=== PATIENT | male | born 1945 | race Caucasian/White ===

== ENCOUNTER 2019-04-29 07:06 | Observation (INO) | payer MEDICARE, OTHER ==
[~2019-04-29] VITALS: Ht 195.6 cm; Wt 108.9 kg
[2019-04-29] VITALS (13 sets, daily range): BP systolic 126–181; BP diastolic 71–85
--- NOTE | ~2019-04-29 | H ---
[address] [address] HISTORY AND PHYSICAL Name: BENJAMIN CORNEJO Room: [address] Chrissie Booker#: [id number] Admission: 04/29/19 Attend Phys: Link Glover MD, F Discharge: 04/30/19 Date of : 43 Report #: [id number] THIS REPORT FOR: //name// Please refer to the History and Physical performed in the physician's office. By: 0636Medical Records Staff EDUARDO /EDWARD
[2019-04-29 08:14] LABS: HEMATOCRIT 46.5 % (42.0-52.0); HEMOGLOBIN 15.8 gm/dL (14.0-18.0); MCH 31.9 pg (26.0-34.0); MCV 93.9 fL (80.0-100.0); MPV 10.1 fl. (7.2-11.1); RBC 4.95 mil/uL (4.50-6.00); RDW-CV 13.9 % (10.5-14.5); WBC 7.1 thou/uL (4.0-11.0)
[2019-04-29 08:21] LABS: PROTIME 10.2 Seconds (9.20-11.50)
[2019-04-29] MEDS ORDERED: ASPIRIN81 M2 PO (08:22)
[2019-04-29] MEDS ORDERED: TUMS PO ×2 (08:23→08:24)
[2019-04-29] MEDS ORDERED: CALCIUM 600 +1 EAC1 PO (08:24)
[2019-04-29] MEDS ORDERED: COQ-10100 MG PO (08:24)
[2019-04-29] MEDS ORDERED: CARDIZEM CD240 MG PO (08:25)
[2019-04-29 08:27] LABS: ANION GAP 8 mmol/L (7-16); BUN 22 mg/dL (7-18); CHLORIDE 104 mmol/L (98-107); CO2 27 mmol/L (21-32); GLUCOSE 96 mg/dL (70-99); POTASSIUM 3.9 mmol/L (3.5-5.1); SODIUM 139 mmol/L (136-145)
[2019-04-29] MEDS ORDERED: LISINOPRIL10 MG PO (08:29)
[2019-04-29] MEDS ORDERED: MOBIC15 MG PO (08:30)
[2019-04-29] MEDS ORDERED: FISH OIL 1,001000 M2 PO (08:30)
[2019-04-29] MEDS ORDERED: MAGOX 400400 MG PO (08:30)
[2019-04-29] MEDS ORDERED: OSTEO BI-FLEX1 EAC1 PO (08:31)
[2019-04-29] MEDS ORDERED: PRILOSEC OTC20 MG PO (08:31)
[2019-04-29 08:32] LABS: ALBUMIN 3.9 g/dL (3.4-5.0); ALKALINE PHOSPHATASE 83 U/L (46-116); SGOT 24 U/L (15-37); SGPT 40 U/L (30-65); TOTAL BILIRUBIN 0.6 mg/dL (<0.1-1.0); TOTAL PROTEIN 7.3 g/dL (6.4-8.2)
[2019-04-29 08:35] LABS: SERUM ASSESSMENT Clear
[2019-04-29 08:54] LABS: CHOLESTEROL 140 mg/dL (<200); HDL CHOLESTEROL 57 mg/dL (>40); LDL CHOLESTEROL 60 mg/dL (<100); TC:HDL 2.5 Ratio (Not establshd); TRIGLYCERIDE 118 mg/dL (<150); VLDL 24 mg/dL (<40)
--- NOTE | 2019-04-29 16:53 | EKG ---
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
--- NOTE | 2019-04-29 17:08 | EKG ---
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
--- NOTE | 2019-04-29 18:23 | CARD ---
[address] [address] CARDIAC CATH REPORT Name: BENJAMIN CORNEJO Room: [address] IN .[place].#: [id number] Admission: 04/29/19 Attend Phys: Link Glover MD, F Discharge: Date of : 43 Report #: [id number] THIS REPORT FOR: //name// APPROVED REPORT Study performed: 04/29/2019 08:15:13 Patient Details Patient Status: Out-Patient Room #: The patient is a 74 year-old male Event Personnel Link Glover Lockstitch Waistline Joiner, Qi Ingram RN RN, Dionte Vanessa (R) Monitor, Zaid Jim MEDICAL CONSULTANT Scrub Procedures Performed NICK Place w/wo Plasty RCA Indication Positive stress test, Chest pain Risk Factors Hypercholesterolemia, Hypertension Previous Procedures/Diagnoses Previous [place] Admission/Lab Medications/Medications given during procedure Glycoprotein IllbIlla Inhibitors, Heparin Unfract. Procedure Narrative The patient was brought electively to the Cardiac Catheterization Laboratory and was prepped and draped in a sterile manner. The left wrist was infiltrated with 1% Lidocaine subcutaneous anesthesia. A Slender Glidesheath sheath was inserted into the left radial artery. Coronary angiography was performed using coronary diagnostic catheters. The right coronary system was accessed and visualized with a Diagnostic JR4 catheter. The left coronary system was accessed and visualized with a Diagnostic JL4 catheter. The left ventricle was accessed and visualized with a Diagnostic Angled Pigtail catheter. Left ventricular/Aortic Valve gradient assessed via catheter pullback. Left ventriculogram was performed in CAPELLAN projection. Closure device was deployed with a 6 Fr Vasc-Band Lng 27cm. The patient tolerated the procedure well and [place] [address] CARDIAC CATH REPORT Name: BENJAMIN CORNEJO Room: [address]#: [id number] Admission: 04/29/19 Attend Phys: Link Glover MD, F Discharge: Date of : 43 Report #: [id number] associated with the procedure. There was no hematoma. Right radial artery had an abnormal Barbeau test. Intraoperative Conscious Sedation Sedation start time: 9:33 Case end Time: 10:30 Fentanyl 50 mcg Versed 3 mg Fluoro Time: 12.0 minutes Dose: DAP 829441 cGycm2 2044 mGy Contrast Type and Amount: Omnipaque 230 ml Coronary Angiography The patient's coronary anatomy is right dominant. Diagnostic Cath Left Main 0% stenosis LAD 80% before and 60% after the 3rd diagonal branch in the mid lad Circumflex 50% proximal stenosis Right Coronary 30% mid stenosis. 90% stenosis in distal rca after the pda branch but prior to the gladys branch Left Ventriculography The left ventricle is normal in size with normal contractility. The left ventricular ejection fraction is estimated to be 60-65%. Left ventricular wall motion abnormalities are not present. There is no mitral insufficiency. Hemodynamics The aortic pressure is 138/62 mmHg with a mean of 96 mmHg. The left ventricular pressure is 143/10 mmHg with a mean of mmHg. The left ventricular end diastolic pressure is 16 mmHg. There was no gradient across the aortic valve upon pullback. Pullback from the left ventricle to the aorta revealed no gradient across the aortic valve. PCI Technique Lesion Anticoagulation was achieved with Heparin. bolus of iv aggrastat given Percutaneous coronary intervention was performed on the distal right coronary artery. The lesion stenosis prior to intervention was 90% with SHANNON 3 flow. A 6F JR 4.0 Guide Catheter was used to engage the rca ostium. A IG: BMW 190cm Interventional Guidewire was used to cross the lesion. [place] [address] CARDIAC CATH REPORT Name: BENJAMIN CORNEJO Room: [address]#: [id number] Admission: 04/29/19 Attend Phys: Link Glover MD, F Discharge: Date of : 43 Report #: [id number] A Balloon catheter Trek RX 2.5 X 8 was inserted and inflated up to 16.00atm for 15seconds. Repeat angiography revealed the following post-dilatation results: 50% stenosis. STENT DEPLOYMENT A drug-eluting stent Melecio RX Stent 3.5X18mm was inserted and inflated up to 12.00atm for 19seconds. Repeat angiography revealed the following post-stent deployment results: 0% stenosis. Additional Inflation: 18.00atm for 18seconds. 70% stenosis noted of the ostium of the pda branch that now arose from within the stent. Final angiography reveals 0 % stenosis with SHANNON 3 flow. PCI Technique Lesion 2 Percutaneous Coronary Intervention was performed on the right posterior descending artery. Percutaneous coronary intervention was performed on the right posterior descending artery. The lesion stenosis prior to intervention was 70% with SHANNON 3 flow. A 6F JR 4.0 Guide Catheter was used to engage the rca ostium. A IG: BMW 190cm Interventional Guidewire was used to cross the lesion. Balloon Dilation A Balloon catheter Mini Trek RX 2.0 X 8 was inserted and inflated up to 16.00atm for 16seconds. Repeat angiography revealed the following post-dilatation results: 30% stenosis. Additional Inflation: 16.00atm for 15seconds. Additional Inflation: 18.00atm for 11seconds. Final angiography reveals 30 % stenosis with SHANNON 3 flow. Conclusion 1. 80% stenosis of the mid lad, and 90% stenosis of the distal rca 2. successful placement of a drug eluting stent in the distal rca 3. placement of stent resulted in plaque shift into the ostium of the pda branch 4. successful PTCA of the pda branch placed through a stent strut 5. LVEF 60-65% Recommendations 1. return at a later date for stenting [place] [address] CARDIAC CATH REPORT Name: BENJAMIN CORNEJO Room: [address] IN [facility]#: [id number] Admission: 04/29/19 Attend Phys: Link Glover MD, F Discharge: Date of : 43 Report #: [id number] Medications Administered Clopidogrel <ELECTRONICALLY SIGNED> By: Link Glover MD, FAC 04/29/19 182 182 [id number] Glover MD, FAC /INF
--- NOTE | 2019-04-29 18:36 | NUR ---
NEW ADMIN POST CATH STENT PLACED LEFT WRIST ACCESSESS 2CC REPORTED TO BE VASCBAND PLACED DUE TO HEMATOMA POST CATH. WAS REMOVED POST ADMISSION APPROX 1530 WITH NO HEMATOMA NOTED. GAUZE 4X4 APPLIED WITH TRANSPARENT DRESSING AND IS CDI. VS STABLE O2 SAT 98% RA. PT A&OX4, PATIENT STANDBY ASSIST FOR SAFETY. IV NOTED TO RIGHT AC WITH IV FLUIDS INFUSING ORDERED. PT DENIES ANY PAIN. CALL LIGHT WITHIN REACH. PT VOICES NEEDS ALL NEEDS MET AT THIS TIME. WCTM
[2019-04-30 00:36] VITALS: BP 129/66
[2019-04-30 04:00] VITALS: BP 121/66
[2019-04-30 05:16] LABS: HEMATOCRIT 43.5 % (42.0-52.0); HEMOGLOBIN 14.8 gm/dL (14.0-18.0); MCH 31.9 pg (26.0-34.0); MCHC 34.1 g/dL (28.0-37.0); MCV 93.3 fL (80.0-100.0); MPV 10.1 fl. (7.2-11.1); RBC 4.66 mil/uL (4.50-6.00); RDW-CV 14.1 % (10.5-14.5); WBC 7.5 thou/uL (4.0-11.0)
[2019-04-30 05:39] LABS: CALCIUM 8.6 mg/dL (8.5-10.1); CREATININE 0.9 mg/dL (0.6-1.3); POTASSIUM 3.9 mmol/L (3.5-5.1)
[2019-04-30 05:41] LABS: TROPONIN-I LEVEL 0.95 ng/mL (<0.06)
--- NOTE | 2019-04-30 06:04 | NUR ---
ASSUMED PT CARE AT 1930. NURSING ASSESSMENT COMPLETED AT START OF SHIFT. PT VOICED NO CONCERNS, HOURLY ROUNDING COMPLETED. EDUCATION CONSULTANT IN PLACE, TRACING SINUS RHYTH. DENIES CHEST PAIN THIS SHIFT. CALL LIGHT WITHIN REACH.
--- NOTE | 2019-04-30 08:15 | NUR ---
ASSUMED PT. CARE AND RECEIVED REPORT AT 0730. PT A/OX4, VSS, MONITOR ON TRACING SR. PT REPORTS SLIGHT TWINGES OF PAIN RATING 0.5/10, REPORTED TO DR. CAZARES BY PATIENT. FULL ASSESSMENT COMPLETED, REFER TO CHARTING. PT. ANTICIPATE DC TODAY, ACCEPTABLE OF PLAN OF CARE. CALL LIGHT IN REACH, WILL COTNINUE WITH PLAN OF CARE.
[2019-04-30 08:17] VITALS: BP 135/72
[2019-04-30 09:44] VITALS: BP 135/72
[2019-04-30] MEDS ORDERED: PLAVIX 75 MG TA75 M1 PO (11:03)
--- NOTE | 2019-04-30 11:38 | EKG ---
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 /EPI
--- NOTE | 2019-04-30 11:55 | NUR ---
DC ORDERS RECEIVED. IV AND MONITOR REMOVED. PT. AND SPOUSE GIVEN DC INSTRUCTIONS, SCRIPTS, AND CARENOTES. PT. LEFT VIA WHEELCHAIR TO RETURN HOME INPERSONAL VEHICLE, ALL BELONGINGS ACCOUNTED FOR.
--- NOTE | 2019-04-30 13:44 | D ---
[address] [address] DISCHARGE SUMMARY Name: BENJAMIN CORNEJO MARIAH Room: [address] Chrissie Booker#: [id number] Admission: 04/29/19 Attend Phys: Link Glover MD, F Discharge: 04/30/19 Date of : 43 Report #: [id number] THIS REPORT FOR: //name// CC: Link Lyons DATE OF SERVICE: 04/30/2019 DISCHARGE DIAGNOSES: 1. Crescendo angina. 2. Coronary artery disease. 3. Hypertension. 4. Hyperlipidemia. CONSULTANTS: None. PROCEDURES: Left heart catheterization with placement of a drug-eluting stent in the right coronary artery via the left radial artery. HISTORY OF PRESENT ILLNESS: The patient is a 74-year-old white male who was brought to the outpatient department for repeat cardiac catheterization. The patient apparently had a previous myocardial infarction in 2002. However, heart catheterization showed normal coronary arteries. He is felt to have possible coronary spasm. Recently, however, he noticed with exertion developed a pain in his chest. It is not related to food. He denied any palpitation or syncope. He denied any shortness of breath. I saw him in the Cardiology Clinic on 04/16 and recommended a stress echocardiogram that was performed on 04/23 in my office. At that time, he walked for 5 minutes and developed chest tightness. ECG showed a [address] segment depression. Ejection fraction was normal at rest 60%. With stress, ejection fraction appeared only to be 50% with inferior hypokinesis noted. This is felt to be abnormal stress echo. I recommended cardiac catheterization. PAST MEDICAL HISTORY: Significant for hernia repair, knee surgery, shoulder surgery, hypertension and hyperlipidemia. MEDICATIONS: Include aspirin, Lipitor, Cardizem-CD, lisinopril and omeprazole. ALLERGIES: HE HAD AN INTOLERANCE TO CODEINE. PHYSICAL EXAMINATION: VITAL SIGNS: Blood pressure was 130/80, pulse was 60. CHEST: Clear to auscultation. CARDIOVASCULAR: [place] [address] DISCHARGE SUMMARY Name: ASHWIN CORNEJOCONRAD LEMUS Room: [address]#: [id number] Admission: 04/29/19 Attend Phys: Link Glover MD, F Discharge: 04/30/19 Date of : 43 Report #: [id number] ABDOMEN: Soft. EXTREMITIES: Had no edema. SKIN: Warm and dry. RADIOLOGICAL DATA: His ECG showed a sinus bradycardia, no significant ST or T-wave changes. LABORATORY DATA: Sodium 143, creatinine 1.0 and glucose 98. Liver function studies were normal. His cholesterol was 140, triglycerides 118, HDL 57 and LDL was only 60. White blood cell count 7.1, hemoglobin 15.8. HOSPITAL COURSE: The patient was brought to the outpatient department. His right radial artery actually failed the Ed's test. Therefore, I performed the procedure from the left radial artery. He tolerated the procedure well. Results showed normal left ventricular function with an ejection fraction of 60%. He was found to have an 80% narrowing of the mid LAD, 50% narrowing of the proximal circumflex and a 90% stenosis of the distal right coronary artery. He was then given heparin and Aggrastat. I placed a single drug-eluting stent in the distal right coronary artery. There was some compromise of the takeoff of the posterior descending branch and I performed balloon angioplasty of the ostium of the PDA that arose from within the stent. He tolerated this well. He was loaded with Plavix. He had no further chest pain, shortness of breath or arrhythmias. Prior to discharge, the patient had no further complaints. He developed no hematoma in the left wrist. The patient had a followup EKG after the procedure that again showed sinus bradycardia, no significant ST or T-wave changes. Followup lab work after the procedure showed his creatinine was 0.9. He did bump his troponin to 0.95. His followup hemoglobin was 14.8. The patient was felt to have had a type 4 myocardial infarction with mild elevation of troponin. However, he had no EKG changes or significant chest pain. It was felt to be secondary to plaque shift into the posterior descending branch. The patient was therefore discharged on his home medications and he was started on Plavix 75 mg a day. He was discharged to return to care of Dr. Samantha Crespo, his primary care physician. I did recommend he not perform any stressful activity until he returns electively on Tuesday 05/22 when I plan to stent the LAD because of the high-grade stenosis. He was to contact my office if he has recurrent angina. At that time, I plan to perform if from the femoral artery since it may require bifurcation stenting and he failed the Ed's test from his right radial artery. At the time of discharge, the patient is ambulating and had no further complaints. His vital signs showed blood pressure 120/60, pulse 60 and he was afebrile. <ELECTRONICALLY SIGNED> By: Link Glover MD, [facility] 04/30/19 1344 0809 [id number] Glover MD, [facility] /nt
== END 2019-04-30 12:03 | disposition home or self-care (01) ==
LOC: M.CL 07:06 → M.TBA-CV 14:54 → M.2W 14:54
PROVIDERS: ADMIT Internal Medicine Cardiovascular Disease
PROC: 027034Z Dilation of Coronary Artery, One Artery with Drug-eluting Intraluminal Device, Percutaneous Approach (ICD-10-PCS; principal; 2019-04-29)
DX: I25.118 Atherosclerotic heart disease of native coronary artery with other forms of angina pectoris (principal); I10 Essential (primary) hypertension; E78.5 Hyperlipidemia, unspecified; E78.00 Pure hypercholesterolemia, unspecified

== ENCOUNTER 2019-05-22 07:22 | Observation (INO) | payer MEDICARE, OTHER ==
[2019-05-22] VITALS (13 sets, daily range): BP systolic 112–162; BP diastolic 62–82
[~2019-05-22] VITALS: Ht 193 cm; Wt 108.9 kg
[~2019-05-22 07:22] MED LIST: ASPIRIN81 M2 PO; CALCIUM 600 +1 EAC1 PO; CARDIZEM CD 18180 M3 PO; COQ-10100 MG PO; FISH OIL 1,001000 M2 PO; LISINOPRIL10 MG PO; MAGOX 400400 MG PO; MOBIC15 MG PO; OSTEO BI-FLEX1 EAC1 PO; PLAVIX 75 MG TA75 M1 PO; PRILOSEC OTC20 MG PO; TUMS PO
[2019-05-22 08:22] LABS: HEMATOCRIT 47.4 % (42.0-52.0); HEMOGLOBIN 16.5 gm/dL (14.0-18.0); MCH 32.5 pg (26.0-34.0); MCHC 34.8 g/dL (28.0-37.0); MCV 93.3 fL (80.0-100.0); MPV 10.1 fl. (7.2-11.1); RBC 5.09 mil/uL (4.50-6.00); WBC 8.5 thou/uL (4.0-11.0)
[2019-05-22 08:37] LABS: ALBUMIN 4.1 g/dL (3.4-5.0); CALCIUM 9.5 mg/dL (8.5-10.1); CREATININE 1.2 mg/dL (0.6-1.3); POTASSIUM 3.7 mmol/L (3.5-5.1); TOTAL BILIRUBIN 0.7 mg/dL (<0.1-1.0); TOTAL PROTEIN 7.7 g/dL (6.4-8.2)
[2019-05-22] MEDS ORDERED: LIPITOR40 MG PO (09:04)
[2019-05-22] MEDS ORDERED: OMEGA-31000 M1 PO (09:10)
[2019-05-22] MEDS ORDERED: PLAVIX 75 MG TA75 M1 PO (09:13)
[2019-05-22] MEDS ORDERED: TURMERIC500 M2 PO (09:13)
--- NOTE | 2019-05-22 15:00 | NUR ---
PT ARRIVED TO UNIT AT APPROX 1455 VIA CART WITH SPOUSE AND NURSING STAFF, RECVD REPORT FROM KAMARI EDWARDS. PT A&O X4, VSS, MANAGEMENT ASSOCIATE TRACING SINUS RHYTHM, CATH SITE TO RIGHT GROIN SOFT, DRESSING CLEAN, DRY, AND INTACT. PT ORIENTED TO CALL LIGHT AND ROOM.
--- NOTE | 2019-05-22 16:48 | EKG ---
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
--- NOTE | 2019-05-22 18:26 | CARD ---
[address] [address] CARDIAC CATH REPORT Name: BENJAMIN CORNEJO Room: [address] IN [facility]#: [id number] Admission: 05/22/19 Attend Phys: Link Glover MD, F Discharge: Date of : 43 Report #: [id number] THIS REPORT FOR: //name// APPROVED REPORT Study performed: 05/22/2019 08:40:28 Patient Details Patient Status: Out-Patient Room #: The patient is a 74 year-old male Event Personnel Link Glover Chemical Production Engineer, Qi Ingram RN Jewelry Technician, Diotne VanessaT (R) Monitor, Brandi Mariscal RTR Monitor, Julius Hatch ORTHOTIST PROSTHETIST Scrub, Eva Lilly RTR Scrub Procedures Performed NICK Place w/wo Plasty Single LAD and ptca of ostium of 3rd diagonal branch after plaque shift following stenting of the lad Indication Positive stress test, Chest pain Risk Factors Arterial Hypertension, Hypercholesterolemia Previous Procedures/Diagnoses Previous PCI, Previous [place] Admission/Lab Medications/Medications given during procedure Heparin Unfract. Procedure Narrative The patient was brought electively to the Cardiac Catheterization Laboratory and was prepped and draped in a sterile manner. The right femoral was infiltrated with 1% Lidocaine subcutaneous anesthesia. A 6fr Ultimum Sheath sheath was inserted into the right femoral artery. Coronary angiography was performed using coronary diagnostic catheters. The right coronary system was accessed and visualized with a Diagnostic JR 4 catheter. The left coronary system was accessed and visualized with a Guide 6F XB LAD 4.0 catheter. Left ventricular/Aortic Valve gradient assessed via catheter pullback. Closure device was deployed with a 6 Fr Angioseal STS 6Fr. The patient tolerated the procedure well [place] [address] CARDIAC CATH REPORT Name: BENJAMIN CORNEJO Room: [address] IN [facility]#: [id number] Admission: 05/22/19 Attend Phys: Link Glover MD, F Discharge: Date of : 43 Report #: [id number] associated with the procedure. There was no hematoma. Intraoperative Conscious Sedation Sedation start time: 9:05 Case end Time: 10:00 Fentanyl 50 mcg Versed 2 mg Fluoro Time: 8.9 minutes Dose: DAP 96759 cGycm2 1656 mGy Contrast Type and Amount: Omnipaque 170 ml Coronary Angiography The patient's coronary anatomy is right dominant. Diagnostic Cath Left Main 0% stenosis LAD 80% stenosis in mid lad between 2nd and 3rd diagonal branch, and 70% beyond the 3rd diagonal artery. Circumflex 0% stenosis noted Right Coronary distal stent with 0% stenosis R PDA 50% ostial stenosis Left Ventriculography Left Ventriculography was not performed. Hemodynamics The aortic pressure is 136/65 mmHg with a mean of 95 mmHg. The left ventricular pressure is 174/10 mmHg with a mean of mmHg. The left ventricular end diastolic pressure is 13 mmHg. There was no gradient across the aortic valve upon pullback. Pullback from the left ventricle to the aorta revealed no gradient across the aortic valve. PCI Technique Lesion Anticoagulation was achieved with Heparin. Patient was preloaded with Plavix. Percutaneous coronary intervention was performed on the mid left anterior descending artery segment. The lesion stenosis prior to intervention was 80% with SHANNON 3 flow. A 6F XB LAD 4.0 Guide Catheter was used to engage the lm ostium. A IG: BMW 190cm Interventional Guidewire was used to cross the lesion. BALLOON DILATION A Balloon catheter Trek RX 2.5 X 15 was inserted and inflated up to 8.00atm for 14seconds. Repeat angiography revealed the following post-dilatation results: 50% [place] [address] CARDIAC CATH REPORT Name: CHANTALBENJAMIN Room: [address]#: [id number] Admission: 05/22/19 Attend Phys: Link Glover MD, F Discharge: Date of : 43 Report #: [id number] STENT DEPLOYMENT A drug-eluting stent Melecio RX Stent 2.5X26mm was inserted and inflated up to 8.00atm for 12seconds. Repeat angiography revealed the following post-stent deployment results: 0% stenosis, but plaque shift resulting in 90% ostial stenosis of the 3rd diagonal branch. Additional Inflation: 8.00atm for 12seconds. Additional Inflation: 11.00atm for 22seconds. Final angiography reveals 0 % stenosis with SHANNON 3 flow. PCI Technique Lesion 2 Percutaneous Coronary Intervention was performed on the 3rd diagnonal branch segment. Patient was preloaded with Plavix. Percutaneous coronary intervention was performed on the 3rd diagonal branch segment. The lesion stenosis prior to intervention was 90% with SHANNON 3 flow. A 6F XB LAD 4.0 Guide Catheter was used to engage the lm ostium. A IG: ProwaterFlex 180CM Interventional Guidewire was used to cross the lesion. Balloon Dilation A Balloon catheter Mini Trek RX 1.5 X 8 was inserted and inflated up to 18.00atm for 17seconds. Repeat angiography revealed the following post-dilatation results: 0% stenosis. Additional Inflation: 20.00atm for 27seconds. Additional Inflation: 20.00atm for 20seconds. Following placement of stent in the lad, 90% ostial stenosis noted of 3rd diagonal branch that arose from within the stent secondary to plaque shift. Unable to place BMW wire through stent in the lad and into ostium of 3rd diagonal branch, but was able to wire diagonal with prowater flex wire. Final angiography reveals 0 % stenosis with SHANNON 3 flow. Conclusion 1. no restenosis noted of stent in the distal rca 2. 80% stenosis of the mid lad 3. successful placement of drug eluting stent in the mid lad, that resulted in 90% stenosis of the ostium of the 3rd diagonal branch secondary to plaque shift. 4. successful PTCA of the ostium of the 3rd diagonal branch through the stent Recommendations [address] [address] CARDIAC CATH REPORT Name: BENJAMIN CORNEJO Room: [address] IN M.R.#: [id number] Admission: 05/22/19 Attend Phys: Link Glover MD, F Discharge: Date of : 43 Report #: [id number] Cardiac Rehabilitation Referral Aggressive Medical Therapy <ELECTRONICALLY SIGNED> By: Link Glover MD, [facility] 05/22/19 182 25 25D[place]ont Glover MD, FACC /INF
--- NOTE | 2019-05-22 18:27 | H ---
[place] [address] HISTORY AND PHYSICAL Name: CHANTALBENJAMIN MARIAH Room: [address] [place] Kay.Celeste.#: [id number] Admission: 05/22/19 Attend Phys: Link Glover MD, F Discharge: Date of : 43 Report #: [id number] THIS REPORT FOR: //name// CC: Link Crespo DATE OF SERVICE: 05/22/2019 HISTORY OF PRESENT ILLNESS: The patient is a 74-year-old white male, who was brought to the outpatient department to undergo repeat coronary artery stenting. The patient apparently presented in 2002 with myocardial infarction. However, heart catheterization at that time apparently showed no significant coronary artery disease. He was felt to have possible coronary artery spasm. Recently, however he notes, with exertion, he developed pain in his chest. Denied any shortness of breath. He underwent a stress echocardiogram in April, walked for 5 minutes and developed chest tightness and developed ST-segment changes. He appeared to develop inferior hypokinesis with exercise on the echocardiogram. Because of his abnormal stress echocardiogram, I recommended cardiac catheterization as performed on 04/30/2019, here at [place]. This was performed from the left radial artery since he failed the Ed's test on his right radial artery. He was found to have an 80% stenosis of the mid LAD, 90% stenosis of the distal right coronary artery. I then placed a drug-eluting stent in the distal right coronary artery. There was plaque shift into the takeoff of the posterior descending branch and I performed balloon angioplasty through a stent strut. Ejection fraction was 60%. He was started on Plavix and discharged. He notes since his discharge, he had only brief chest pain, but no shortness of breath, palpitations, syncope, fever, bleeding. He returns at this time for stenting of the LAD. PAST MEDICAL HISTORY: Otherwise significant for hernia repair, knee surgery, shoulder surgery, back surgery, hypertension, hyperlipidemia. MEDICATIONS: Include aspirin, Lipitor, Cardizem-CD, Lisinopril, omeprazole, Plavix. ALLERGIES: INTOLERANCE TO CODEINE. FAMILY HISTORY: No history of heart disease. SOCIAL HISTORY: He is . He and his live in [place]. 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 No alcohol abuse. REVIEW OF SYSTEMS: No history of stroke, asthma, peptic ulcer disease, liver disease, kidney disease, cancer, psychiatric illness, [place] [address] HISTORY AND PHYSICAL Name: BENJAMIN CORNEJO Room: [address]#: [id number] Admission: 05/22/19 Attend Phys: Link Glover MD, F Discharge: Date of : 43 Report #: [id number] PHYSICAL EXAMINATION: GENERAL: Revealed an elderly male, who appeared in no distress. VITAL SIGNS: Blood pressure 130/80, pulse is 60. HEENT: Mucous membranes are moist. NECK: Veins nondistended. No carotid bruits. CHEST: Clear to auscultation. CARDIOVASCULAR: Regular rate and rhythm. ABDOMEN: Soft. EXTREMITIES: Had no edema. Posterior tibial pulse 2+ bilaterally. SKIN: Warm, dry. NEUROLOGIC: Nonfocal. LYMPH: No adenopathy. MUSCULOSKELETAL: No joint effusions. IMPRESSION AND RECOMMENDATIONS: 1. Coronary artery disease. Recent stenting of the right coronary artery. Recommend stenting of a high-grade stenosis of mid LAD. I discussed the indications, alternatives, and risks of the procedure with the patient and he agreed to proceed. 2. Hypertension. The patient is on a calcium khushi and BEN inhibitor. 3. Hyperlipidemia. The patient is on a statin drug. 4. Dyspepsia. The patient uses omeprazole. 5. Previous esophageal dilatation. 6. History of Raynaud's syndrome. The patient's symptoms improved with diltiazem. <ELECTRONICALLY SIGNED> By: Link Glover MD, [facility] 05/22/19 1827 0816 [id number] Glover MD, [facility] /nt
[2019-05-23] VITALS: BP 112/63
--- NOTE | 2019-05-23 02:23 | NUR ---
PT ALERT ORIENTED. UP AD SHARYN. R GROIN SITE SOFT. DRSG D/I. PT STATED PAIN IN CHEST RATED AT 1 1/2. HYDROCODONE GIVEN. PT CURRENTLY SLEEPING.
[2019-05-23 04:00] VITALS: BP 110/64
[2019-05-23 05:31] LABS: HEMATOCRIT 48.7 % (42.0-52.0); HEMOGLOBIN 16.3 gm/dL (14.0-18.0); MCH 31.7 pg (26.0-34.0); MCHC 33.4 g/dL (28.0-37.0); MCV 94.9 fL (80.0-100.0); MPV 10.4 fl. (7.2-11.1); RBC 5.13 mil/uL (4.50-6.00); RDW-CV 14.4 % (10.5-14.5); WBC 9.5 thou/uL (4.0-11.0)
[2019-05-23 06:06] LABS: POTASSIUM 3.9 mmol/L (3.5-5.1)
[2019-05-23 06:22] LABS: TROPONIN-I LEVEL 2.09 ng/mL (<0.06)
[2019-05-23 08:07] VITALS: BP 127/64
[2019-05-23 08:30] VITALS: BP 150/77
--- NOTE | 2019-05-23 10:22 | NUR ---
RECIEVED REPORT FROM ILEANA AND ASSUMED CARE OF PT @ 0285.PT IS A/O X4,VSS,TRACING SB-SR ON THE MONITOR.IV PATENT AND SALINE LOCKED.RIGHT GROIN CATH SITE CLEAN,DRY, AND INTACT.PT IS CALM AND COOPERATIVE AND ANXIOUS TO DISCHARGE. OK PT FOR DISCHARGE AFTER NOON.PT INFORMED OF PLAN OF CARE AND COMMUNICATES UNDERSTANDING.PT LEFT RESTING IN BED WITH CALL LIGHT WITHIN REACH.WILL CONTINUE TO MONITOR.
[2019-05-23] MEDS ORDERED: NITROGLYCERIN0.4 MG SUBLING (11:31)
[2019-05-23] MEDS ORDERED: APAP650 PO (11:31)
[2019-05-23 11:55] VITALS: BP 123/70
--- NOTE | 2019-05-23 12:20 | NUR ---
PT OK FOR DISCHARGE.PAPERWORK COMPLETED AND GIVEN TO THE PT.NO SCRIPTS GIVEN.PT EDUCATED ON POST CATH RESTRICTIONS AND FOLLOW UP APPOINTMENTS.IV REMOVED.HEART MONITOR REMOVED AND RETURNED TO THE NURSING STATION.ALL PERSONAL BELONGINGS PACKED AND TAKEN WITH THE PT.PT WHEELED OUT BY NURSING STAFF TO PERSONAL VEHICLE.
--- NOTE | 2019-05-23 16:58 | EKG ---
[place] [address] ELECTROCARDIOGRAM REPORT Name: BENJAMIN CORNEJO Room: [address] M.R.#: [id number] Admission: 05/22/19 Attend Phys: Link Glover MD, F Discharge: 05/23/19 Date of : 43 Report #: [id number] THIS REPORT FOR: //name// [facility] Test Date: 2019-05-22 Test Time: 16:44:31 Pat Name: BENJAMIN CORNEJO Department: Room: [address] Gender: M Director Speech Language: : 1945 Requested By: Link Glover Order Number: [id number] Lobo MD: Jhon Banks Measurements Intervals [place] Rate: 56 P: 65 SC: 181 QRS: 49 QRSD: 101 T: 0 QT: 423 QTc: 409 Interpretive Statements Sinus rhythm Compared to ECG 05/22/2019 10:50:18 No significant changes Electronically Signed On 05-23-2019 16:58:00 CDT by Jhon Banks [email or web address] <ELECTRONICALLY SIGNED> By: Jhon Bakns MD, [facility] 05/23/19 1658 1644 43 Jhon Banks MD, [facility] /EPI
--- NOTE | 2019-05-23 17:01 | EKG ---
[place] [address] ELECTROCARDIOGRAM REPORT Name: BENJAMIN CORNEJO Room: [address] M.R.#: [id number] Admission: 05/22/19 Attend Phys: Link Glover MD, F Discharge: 05/23/19 Date of : 43 Report #: [id number] THIS REPORT FOR: //name// [facility] Test Date: 2019-05-23 Test Time: 04:22:33 Pat Name: BENJAMIN CORNEJO Department: Room: [address] Gender: M Coater: [id number] : 1945 Requested By: Link Glover Order Number: [id number] Lobo MD: Jhon Banks Measurements Intervals [place] Rate: 46 P: 70 [place]: 184 QRS: 56 QRSD: 102 T: 14 QT: 453 QTc: 397 Interpretive Statements Sinus bradycardia Compared to ECG 05/22/2019 10:50:18 Sinus rhythm no longer present Electronically Signed On 05-23-2019 17:01:26 CDT by Jhon Banks [email or web address] <ELECTRONICALLY SIGNED> By: Jhon Banks MD, [facility] 05/23/19 1701 0422 0422 Jhon Banks MD, [facility] /EPI
--- NOTE | 2019-05-23 17:32 | D ---
[address] [address] DISCHARGE SUMMARY Name: BENJAMIN CORNEJO MARIAH Room: [address] Chrissie Booker#: [id number] Admission: 05/22/19 Attend Phys: Link Glover MD, F Discharge: 05/23/19 Date of : 43 Report #: [id number] THIS REPORT FOR: //name// CC: Link Crespo DATE OF SERVICE: 05/23/2019 DISCHARGE DIAGNOSES: 1. Coronary artery disease. 2. Hypertension. 3. Hyperlipidemia. CONSULTANTS: None. PROCEDURES: Left heart catheterization with placement of a drug-eluting stent in the left anterior descending artery via the femoral approach. HISTORY OF PRESENT ILLNESS: The patient is a 74-year-old white male who was brought to the outpatient department to undergo coronary artery stenting. The patient actually had a previous myocardial infarction in 2002 at which time he was found to have no significant coronary artery disease. He was felt to have possible coronary spasm. Recently with exertion, he developed chest tightness. He underwent a stress echocardiogram in April and developed ST-segment changes and chest pain. There was inferior wall hypokinesis. I performed an outpatient cardiac catheterization on 04/30/2019 here at [place] from the left radial artery since he failed the Ed's test on his right radial artery. He was found to have a 90% narrowing of the mid LAD, 90% narrowing of the distal right coronary artery. I then placed a drug-eluting stent in the distal right coronary artery and after plaque shift, he required balloon angioplasty of the posterior descending branch that arose from within the stent. Ejection fraction was 60%. He was placed on Plavix and discharged. He was electively readmitted this time for stenting of the LAD electively. Since his discharge, he denied any bleeding. PAST MEDICAL/SURGICAL HISTORY: Significant for hernia repair, knee surgery, shoulder surgery, back surgery, hypertension, and hyperlipidemia. MEDICATIONS: Include aspirin, Plavix, Lipitor, Cardizem CD, lisinopril, and omeprazole. ALLERGIES: HE HAD INTOLERANCE TO CODEINE. PHYSICAL EXAMINATION: VITAL SIGNS: Blood pressure 130/80 [place] 56[place] [address] DISCHARGE SUMMARY Name: BENJAMIN CORNEJO [address]#: [id number] Admission: 05/22/19 Attend Phys: Link Glover MD, F Discharge: 05/23/19 Date of : 43 Report #: [id number] CHEST: Clear to auscultation. CARDIOVASCULAR: Regular bradycardia. ABDOMEN: Soft. EXTREMITIES: Had no edema. RADIOLOGIC DATA: His ECG showed a sinus bradycardia with no ST or T-wave change. LABORATORY DATA: Sodium 144, creatinine 0.0, and glucose 99. Liver function studies were normal. Recent cholesterol was 140, triglycerides 118, HDL 57, and LDL 60. White blood cell count 8.5 and hemoglobin of 16.5. HOSPITAL COURSE: The patient was brought to the outpatient department. I performed left heart catheterization from the right femoral artery since I was concerned that the patient might require stenting of a bifurcation lesion. He tolerated the procedure well. No ventriculogram is performed. The stent in the right coronary artery had no restenosis. There was again noted approximately 80% stenosis in the mid LAD. Circumflex had no significant disease. I then placed a single drug-eluting stent in the LAD after he was given heparin. This resulted in plaque shift into the third diagonal branch. I then performed balloon angioplasty of the ostium of this diagonal branch. He tolerated this well. Fortunately, he had no further chest pain, arrhythmias, or heart failure. Following day, he is ambulating and had no further complaints. An Angio-Seal was placed in the right femoral artery. At time of discharge, he had no complaints. At the time of discharge, he had a blood pressure of 150/70, his was 56, and he was afebrile. Followup lab work the day after his procedure included creatinine of 1.0, his troponin did bump to 2.09, followup hemoglobin was 16.3, and there was no drop in platelet count after receiving the heparin bolus during the procedure. Followup ECG showed a sinus rhythm with no ST or T-wave change. He did have a small bump in troponin, most likely secondary to plaque shift into the diagonal branch representing a myocardial infarction, type 4. DISCHARGE MEDICATIONS: He was discharged on his home medications that consisted of aspirin 81 mg a day, Lipitor 40 mg a day, Plavix 75 mg a day, Cardizem CD 360 mg a day, lisinopril 10 mg a day, omeprazole 20 mg a day and he had nitroglycerin to take as needed for chest pain. DISCHARGE INSTRUCTIONS: He was discharged to return to care of Dr. Samantha Crespo for routine medical care. I planned on seeing him in the Cardiology Clinic in 6 weeks for followup. He was felt to have a good prognosis from cardiac standpoint secondary to preserved left ventricular function. He was to contact to my office if he had recurrent chest pain or bleeding. The patient might [address] [address] DISCHARGE SUMMARY Name: BENJAMIN CORNEJO Room: [address] Chrissie Booker#: [id number] Admission: 05/22/19 Attend Phys: Link Glover MD, F Discharge: 05/23/19 Date of : 43 Report #: [id number] require knee surgery in the future, but I suggested waiting at least 6 months following elective stenting. <ELECTRONICALLY SIGNED> By: Link Glover MD, FACC 05/23/19 1732 0839 [id number] Glover MD, FACC /nt
== END 2019-05-23 12:23 | disposition home or self-care (01) ==
LOC: M.CL 07:22 → M.2W 14:44 → M.TBA-CV 14:44 → M.2W 15:04
PROVIDERS: ADMIT Internal Medicine Cardiovascular Disease
DX: I25.10 Atherosclerotic heart disease of native coronary artery without angina pectoris (principal); I10 Essential (primary) hypertension; E78.5 Hyperlipidemia, unspecified; R10.13 Epigastric pain; K22.8 Other specified diseases of esophagus; F17.290 Nicotine dependence, other tobacco product, uncomplicated; Z88.5 Allergy status to narcotic agent; Z98.890 Other specified postprocedural states; Z79.899 Other long term (current) drug therapy; Z87.39 Personal history of other diseases of the musculoskeletal system and connective tissue